=== PATIENT | male | born 1985 | race Caucasian/White ===

== ENCOUNTER 2019-08-05 06:03 | Day surgery (SDC) | payer MEDICARE, MEDICAID, SELFPAY ==
[2019-08-05 06:31] VITALS: BP 138/90; PULSE 75; RESP 16; TEMP 36.3
[2019-08-05] MEDS: sodium chloride 0.9% 500 ML 30 ML IV (06:38)
--- NOTE | 2019-08-05 06:55 | ANES.PREANE2 ---
Pre-Anesthetic Assessment Pre-Anesthetic Assessment: Height/Weight: Height 1.85 m Weight 103.419 kg Temp Pulse Resp BP Pulse Ox 97.5 F L 74 18 139/92 95 08/05/19 07:36 08/05/19 07:36 08/05/19 07:36 08/05/19 07:36 08/05/19 07:36 Preop Diagnosis: Gerd; dysphagia Proposed Procedure: Operation Date: 08/05/19 07:00 Proposed Procedures p EGD Dilation W/ Balloon 70459 K21.9(Not Applicable) - Karlos Martin MD Was Beta Sukhdeep taken within 24 hours: N/A Social: Social History: Tobacco Exam: Pre-Anes Outpt Exam: alert, oriented x 3, clear to auscultation bilaterally and regular rate & rhythm Airway: Submandibular: WNL Cervical ROM: WNL MP: 3 Dentition: Chipped History/ROS: No significant history except as noted Pulmonary: Pulmonary: None reported CV/HEM: CV/HEM: None reported : : None reported Hepatic: Hepatic: None reported GI: GI: GERD and PUD Metabolic: Metabolic: None reported Musc/skel: Musc/skel: Fibromyalgia, Lower Back Pain, OA/DJD and Weakness Comments: old work injury Neuropsych: Neuropsych: Anxiety and Depression Comments: PTSD Anesthetic Plan: ASA status: 3 Anesthesia: Anesthesia Evaluation and MAC Risk of > 500 ml blood loss (7ml/kg in children): No Meds/Allergies Current Medications: Current Medications Generic Name Dose Route Start Last Admin Trade Name Freq PRN Reason Stop Dose Admin Sodium Chloride 500 mls @ 0 mls/h r 08/05/19 06:30 08/05/19 06:38 Sodium Chloride 0.9% IV 30 mls/hr .Q0M REEMA Administration As Directed PFSH Anesthesia PFSH: Medical History (Updated 07/28/19 @ 17:22 by Karlos Martin MD) Anxiety Chronic low back pain Chronic neck pain Fibromyalgia GERD (gastroesophageal reflux disease) MDD (major depressive disorder) PTSD (post-traumatic stress disorder) Rheumatoid arthritis RLS (restless legs syndrome) Surgical History (Updated 08/05/19 @ 07:18 by Karlos Martin MD) H/O esophagogastroduodenoscopy (08/05/19) mild gastritis H/O lumbar discectomy L4-L5 Family History Father CAD (coronary artery disease) Diabetes Mother Diabetes Bleeding disorder betathalmacemia Brother Diabetes Denies family history of Anesthesia complication Social History Smoking and tobacco status: current every day smoker Alcohol intake: never Household members: spouse Marital status: Current occupational status: disabled History of recent travel: No Data Anesthesia Cardiac Studies: No Data to Display
[2019-08-05 07:21] VITALS: BP 127/86; PULSE 72; RESP 18; TEMP 36.3; O2SAT 97
[2019-08-05 07:36] VITALS: BP 139/92; PULSE 74; RESP 18; TEMP 36.4; O2SAT 95
--- NOTE | 2019-08-05 08:01 | ANE.PACU2 ---
Inpatient post-anesthesia follow up: Airway intact: Yes Vital signs: Temperature 97.5 F Pulse Rate 74 Respiratory Rate 18 Blood Pressure 139/92 Pulse Oximetry 95 Oxygen Delivery Me thod Room Air Oxygen Flow Rate 4 Fraction of Inspir ed Oxygen Hydration adequate: Yes Nausea and vomiting: No Mental status: Baseline
--- NOTE | 2019-08-15 18:09 | W.PM.OPSUD ---
Surgery/Procedure H&P Update DATE OF PROCEDURE: August 05, 2019 DATE H&P PERFORMED: 07/28/19 H&P UPDATE INFORMATION: I have reviewed H&P completed within last 30 days, I have examined patient prior to procedure and No changes to prior documentation PREOP DIAGNOSIS: Gerd; dysphagia PLANNED PROCEDURE: Operation Date: 08/05/19 07:00 Proposed Procedures p EGD Dilation W/ Balloon 03547 K21.9(Not Applicable) - Karlos Martin MD
== END 2019-08-05 07:54 | disposition home or self-care (01) ==
PROVIDERS: PCP Family Medicine; Visit Provider Surgery
DX: K21.9 Gastro-esophageal reflux disease without esophagitis (principal); R13.10 Dysphagia, unspecified; K29.70 Gastritis, unspecified, without bleeding; Z87.11 Personal history of peptic ulcer disease; M79.7 Fibromyalgia; M19.90 Unspecified osteoarthritis, unspecified site; M06.9 Rheumatoid arthritis, unspecified; Z82.49 Family history of ischemic heart disease and other diseases of the circulatory system; Z83.3 Family history of diabetes mellitus; F17.210 Nicotine dependence, cigarettes, uncomplicated
CPT/HCPCS: 12345; 43239; 88305; J2704; J7030

== ENCOUNTER → 2019-08-26 08:13 | Outpatient (BNVA) | payer MEDICARE, MEDICAID, SELFPAY | PROVIDERS: PCP Family Medicine; Referring Provider Family Medicine; Visit Provider Specialist | DX: G43.711 Chronic migraine without aura, intractable, with status migrainosus (principal); M54.2 Cervicalgia | CPT/HCPCS: 99204 ==

== ENCOUNTER 2019-09-16 06:57 | Outpatient (CLI) | payer MEDICARE, MEDICAID, SELFPAY ==
--- NOTE | 2019-09-16 07:14 | MR_ITS ---
WS: [id number] MRA ANGIOGRAPHY [place] HISTORY: HEADACHE COMPARISON: None available. TECHNIQUE: 3-D MR angiography is performed of the [place]. All images are reviewed including source images. Distal vertebral and basilar arteries are intact with no significant stenosis or plaque. Posterior ce rebral arteries are normal course and caliber. Posterior communicating arteries are both patent. Intracranial portion of the internal carotid arteries are normal course and caliber. No significant a therosclerosis, stenosis or aneurysm identified. Middle and anterior cerebral arteries are both paten t with no significant disease. Anterior communicating artery is also normal. Complete opacification of the RIGHT maxillary sinus with minimal opacification of the mid RIGHT ethmo id air cells. Small amount of increased opacification LEFT frontal sinus. MR/MR angio head wo con [id number] IMPRESSION: Normal MRA [place]. RIGHT frontal, ethmoid and maxillary sinus disease.
== END 2019-09-16 06:58 | disposition home or self-care (01) ==
PROVIDERS: PCP Family Medicine; Visit Provider Specialist
DX: R51 Headache (principal); J32.0 Chronic maxillary sinusitis
CPT/HCPCS: 70544

== ENCOUNTER 2019-11-05 09:34 | Outpatient (RCR) | payer MEDICARE, MEDICAID, SELFPAY | END 2019-11-26 11:49 | disposition home or self-care (01) | LOC: SPT 09:34 | PROVIDERS: PCP Family Medicine; Referring Provider Specialist; Visit Provider Specialist | DX: M89.29 Other disorders of bone development and growth, multiple sites (principal); M54.2 Cervicalgia | CPT/HCPCS: 97110; 97140; 97162; G0283 ==

== ENCOUNTER → 2019-11-25 11:01 | Outpatient (BNVA) | payer MEDICARE, MEDICAID, SELFPAY | PROVIDERS: PCP Family Medicine; Visit Provider Specialist | DX: R51 Headache (principal); G24.3 Spasmodic torticollis; J32.0 Chronic maxillary sinusitis; F17.210 Nicotine dependence, cigarettes, uncomplicated | CPT/HCPCS: 99214 ==

== ENCOUNTER → 2020-01-01 15:47 | Outpatient (BNVA) | payer MEDICARE, MEDICAID, SELFPAY | PROVIDERS: PCP Family Medicine; Visit Provider Specialist | DX: G43.711 Chronic migraine without aura, intractable, with status migrainosus (principal); F17.210 Nicotine dependence, cigarettes, uncomplicated | CPT/HCPCS: 99213 ==

== ENCOUNTER 2020-12-10 10:34 | Outpatient (CLI) | payer MEDICARE, MEDICAID, SELFPAY ==
[2020-12-10 10:43] VITALS: BMI 33.5
[2020-12-10 10:50] VITALS: BP 143/95; PULSE 79; RESP 18; TEMP 36.7; O2SAT 98
[2020-12-10 11:14] VITALS: BP 131/90; PULSE 77; RESP 18; TEMP 36.5; O2SAT 94
[2020-12-10 12:25] VITALS: BP 140/85; PULSE 69; RESP 18; TEMP 36.7; O2SAT 93
== END 2020-12-10 10:35 | disposition home or self-care (01) ==
LOC: OPS 10:39
PROVIDERS: PCP Family Medicine; Visit Provider Nurse Practitioner Family
DX: U07.1 COVID-19 (principal)
CPT/HCPCS: 96365

== ENCOUNTER 2023-04-14 14:20 | Emergency (ER) | payer MEDICARE, MEDICAID, SELFPAY ==
[2023-04-14 14:26] VITALS: BP 184/98; PULSE 86; RESP 17; TEMP 36.4; O2SAT 98; BMI 27.0
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
[2023-04-14 15:23] VITALS: BP 184/98; PULSE 86; RESP 17; TEMP 36.4; O2SAT 98
== END 2023-04-14 15:24 | disposition home or self-care (01) ==
PROVIDERS: Emergency Provider Emergency Medicine; PCP Family Medicine
DX: S39.012A Strain of muscle, fascia and tendon of lower back, initial encounter (principal); Z72.0 Tobacco use; Y04.2XXA Assault by strike against or bumped into by another person, initial encounter
CPT/HCPCS: 99283